=== PATIENT | female | born 1995 | race Caucasian/White ===

== ENCOUNTER → 2021-04-29 | Emergency (ER) | payer OTHER ==
[2016-03-30 03:32] VITALS: BP 139/71
[~2021-04-29] MED LIST: PRED20TA PO; SULF1TAB24 PO
== END | disposition left against medical advice (07) ==
LOC: ER 16:39
DX: R10.2 Pelvic and perineal pain (principal); Z53.21 Procedure and treatment not carried out due to patient leaving prior to being seen by health care provider